=== PATIENT | male | born 1980 | race Caucasian/White ===

== ENCOUNTER 2020-07-17 10:21 | Outpatient (CLI) | payer OTHER ==
--- NOTE | 2020-07-17 11:11 | RAD ---
XR Chest Pa Lat STANDARD HISTORY: Unspecified dyspnea. Chest pain COMPARISON: None FINDINGS: The heart size is normal. The lungs are well expanded without focal areas of consolidation, pneumothorax or pleural effusions. IMPRESSION: No radiographic evidence of acute cardiopulmonary process.
== END 2020-07-17 10:22 | disposition home or self-care (01) ==
LOC: BICRAD 10:21
PROVIDERS: ATTEND Physician Assistant
DX: R06.00 Dyspnea, unspecified (principal)
CPT/HCPCS: 71046